=== PATIENT | female | born 2000 | race American Indian/Alaskan Native ===

== ENCOUNTER 2021-04-28 18:34 | Outpatient (CLI) | payer MEDICAID ==
--- NOTE | 2021-04-28 20:27 | Ultrasound Report ---
ULTRASOUND OBSTETRIC LIMITED INDICATION / CLINICAL INFORMATION: wellbeing. Clinical Gestational Age (GA): 36.1 weeks.days COMPARISON: None available. FINDINGS: HEART RATE (beats per minute): 145 AMNIOTIC FLUID INDEX (cm) = 17.6 (normal = 7-24 cm) PRESENTATION: Cephalic. ADDITIONAL FINDINGS: None. IMPRESSION: 1. No significant abnormality. Signer Name: River Oakes MD Signed: 04/28/2021 8:23 PM Workstation Name: [email or web address]
--- NOTE | 2021-04-29 07:33 | Ultrasound Report ---
US OB BPP wo non-stress INDICATION / CLINICAL INFORMATION: wellbeing. TECHNIQUE: Transabdominal. COMPARISON: None available. FINDINGS: Biophysical Profile: breathing movements: 2 movements:2 posture and tone:2 Qualitative amniotic fluid volume: 2 Amniotic fluid index: 17.6 cm. Positioning: Cephalic. heart rate: 138 bpm. IMPRESSION: 1. Biophysical profile 8 of 8 Signer Name: Dayne Poon MD Signed: 04/29/2021 7:29 AM Workstation Name: [id number]
== END 2021-04-28 20:39 | disposition home or self-care (01) ==
LOC: TRG 18:34 → APU 19:29 → TRG 20:39
PROVIDERS: ATTEND Obstetrics & Gynecology
DX: Z34.93 Encounter for supervision of normal pregnancy, unspecified, third trimester (principal); Z3A.36 36 weeks gestation of pregnancy
CPT/HCPCS: 59025; 76815; 76819

== ENCOUNTER 2021-05-04 20:32 | Inpatient (IN) | payer MEDICAID ==
[2021-05-04] MEDS ORDERED: miSOPROStol 200 MCG TAB PR PRN (22:05)
[2021-05-04] MEDS ORDERED: DINOPROSTONE 10 MG VAG SUPP VG ONE ×2 (22:05→23:15)
[2021-05-04] MEDS ORDERED: LIDOCAINE (2%) 20 MG/1 ML VIAL 20 ML MDV INFILTRATI ONE (22:05)
[2021-05-04] MEDS ORDERED: ePHEDrine SULFATE 50 MG/1 ML INJ IV PRN (22:05)
[2021-05-04] MEDS ORDERED: ACETAMINOPHEN 325 MG TAB PO PRN (22:05)
[2021-05-04] MEDS ORDERED: MINERAL OIL 30 ML ORAL LIQD PO PRN (22:05)
[2021-05-04] MEDS ORDERED: TERBUTALINE 1 MG/1 ML INJ SUB-Q PRN (22:05)
[2021-05-04] MEDS ORDERED: OXYTOCIN 10 UNIT/1 ML INJ IM PRN (22:05)
[2021-05-04] MEDS ORDERED: LOPERAMIDE 2 MG CAP PO PRN (22:05)
[2021-05-04] MEDS ORDERED: CARBOPROST TROMETHAMINE 250 MCG/1 ML INJ IM PRN (22:05)
[2021-05-04] MEDS ORDERED: METHYLERGONOVINE MALEATE 0.2 MG/ML VIAL IM PRN (22:05)
--- NOTE | 2021-05-04 22:14 | History and Physical Report ---
History of Present Illness Date of examination: 05/04/21 Date of admission: 05/04/21 20:32 Chief complaint: Pt admitted for IOL d/t IUGR as recommended by [facility] History of present illness: EDC Calculations LMP: 05/25/2021 Past History : 2 Term Births: 0 Premature Births: 0 Living Children: 0 Para: 0 Mult. Births: 0 Prev : 0 Aborta: 1 Elect. Ab: 0 Spont. Ab: 1 Ectopics: 0 # 1 Delivery date: 04/2020 Comments: SAB Past Medical History: Reviewed history and no changes required: Negative Past Medical History Past Surgical History: Reviewed history and no changes required: Fractured pelvis in April with plates and screws placed on right side. 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 Abnormal PAP: negative GIUSEPPE Exposure: negative Infertility: negative Uterine Anomaly: negative Uterine Surgery (not C/S): negative Other Gynecologic Problems: negative Family Hx: Mother: DM Infection History Hx of STD: none HIV Risk Eval: low risk Hepatitis B Risk Eval: low risk Personal hx. of genital herpes: no Partner hx. of genital herpes: no Rash, Viral, or Febrile illness since last LMP? no Varicella/Chicken Pox Status: Previous Disease TB Risk: no Genetic History Congenital Heart Defect: Mom: no Dad: no Orly Disease: Mom: no Dad: no Thalassemia Mom: no Dad: no Neural Tube Defect Mom: no Dad: no Down's Syndrome Mom: no Dad: no Bertrand-Sachs Mom: no Dad: no Sickle Cell Disease/Trait Mom: no Dad: no Hemophilia Mom: no Dad: no Muscular Dystrophy Mom: no Dad: no Cystic Fibrosis Mom: no Dad: no [place] Chorea Mom: no Dad: no Mental Retardation Mom: no Dad: no Fragile X Mom: no Dad: no Other Genetic/Chromosomal Disorder Mom: no Dad: no Child w/other defect Mom: no Dad: no Enviromental Exposures Enviromental Exposures Reviewed Xray Exposure: no Medication, drug, or alcohol use since LMP: no Chemical/Other Exposure: no Exposure to Cat Liter: no Hx of Parvovirus (Fifth Disease): no Occupational Exposure to Children: none Active Medications: None Current Allergies: No known allergies Past History Past Medical History: other (see HPI) Past Surgical History: other (see HPI) [employer]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) Family/Genetic History: other (see HPI) Social history: no significant social history - Obstetrical History Expected Date of Delivery: 05/25/21 Actual Gestation: 37 Week(s) 0 Day(s) : 2 Para: 0 Hx # Term Pregnancies: 0 Number of Pregnancies: 0 Spontaneous Abortions: 1 Induced : 0 Number of Living Children: 0 Medications and Allergies Allergies Allergy/AdvReac Type Severity Reaction Status Date / Time No Known Allergies Allergy Verified 04/28/21 18:53 Home Medications Medication Instructions Recorded Confirmed Last Taken Type No Known Home Medications [No 05/04/21 05/04/21 Unknown History Reported Home Medications] Active Meds: Active Medications Acetaminophen (Acetaminophen 325 Mg Tab) 650 mg PO Q4H PRN PRN Reason: Pain, Mild (1-3) Carboprost Tromethamine (Carboprost Tromethamine 250 Mcg/1 Ml Inj) 250 mcg IM ONCE PRN PRN Reason: Uterine Bleeding Dinoprostone (Dinoprostone 10 Mg Vag Supp) 10 mg VG ONCE ONE Stop: 05/04/21 22:06 Ephedrine Sulfate (Ephedrine Sulfate 50 Mg/1 Ml Inj) 10 mg IV Q2M PRN PRN Reason: Hypotension Lactated Ringer's (Lactated Ringers) 1,000 mls @ 125 mls/hr IV DIRECT TARAN Oxytocin/Sodium Chloride (Pitocin/Ns 30 Unit/500ml) 30 units in 500 mls @ 40 mls/hr IV TITR TARAN; Protocol Lidocaine (Lidocaine (2%) 20 Mg/1 Ml Vial 20 Ml Mdv) 20 ml INFILTRATI ONCE ONE Stop: 05/04/21 22:06 Loperamide HCl (Loperamide 2 Mg Cap) 2 mg PO ONCE PRN PRN Reason: give with Hemabate Methylergonovine Maleate (Methylergonovine Maleate 0.2 Mg/Ml Vial) 0.2 mg IM ONCE PRN PRN Reason: Uterine Bleeding Mineral Oil (Mineral Oil 30 Ml Oral Liqd) 30 ml PO QHS PRN PRN Reason: Constipation Misoprostol (Misoprostol 200 Mcg Tab) 800 mcg [place] ONCE PRN PRN Reason: Uterine Bleeding Nalbuphine HCl (Nalbuphine 10 Mg/1 Ml Inj) 10 mg IV Q2H PRN PRN Reason: Pain, Moderate (4-6) Oxytocin (Oxytocin 10 Unit/1 Ml Inj) 10 unit IM ONCE PRN PRN Reason: Uterine Bleeding Terbutaline Sulfate (Terbutaline 1 Mg/1 Ml Inj) 0.25 mg SUB-Q ONCE PRN PRN Reason: Hyperstimulation/Hypertonicity Review of Systems All systems: negative - Vital Signs Vital signs: Vital Signs Pulse BP 113 H 108/68 05/04/21 21:04 05/04/21 21:04 Temp Pulse Resp BP Pulse Ox 98.5 F 113 H 12 108/68 05/04/21 21:06 05/04/21 21:06 05/04/21 21:06 05/04/21 21:06 - Physical Exam Breasts: Positive: normal Lungs: Positive: Normal air movement Abdomen: Positive: normal appearance Genitourinary (Female): Positive: normal external genitalia - Obstetrical FHR: category 1 Uterine Contraction Monitor Mode: External Cervical Dilatation: 0 Uterine Contraction Pattern: Irregular Uterine Tone Measurement Phase: Resting Results Result Diagrams: 05/04/21 21:48 All other labs normal. Assessment and Plan 21y/o @ 37+0 weeks admitted for IOL d/t IUGR 4th %. GBS Negative. pt had regular care since 10wks gestation. Admission orders in EMR, plan for cervical ripening. - Patient Problems (1) 37 weeks gestation of Current Visit: Yes Status: Acute (2) IUGR (intrauterine growth restriction) Current Visit: Yes Status: Acute Plan to address problem: efw 4th% at AMFM 04/12 IOL recommended at 37 weeks cont efm/toco cervical ripening tonight
[2021-05-04 22:22] LABS: Hematocrit 34.4 % (30.3-42.9); Hemoglobin 11.5 gm/dl (10.1-14.3); Mean Corpuscular HGB Conc 33 % (30-34); Mean Corpuscular Volume 87 fl (79-97); Platelet Count 195 K/mm3 (140-440); Red Blood Count 3.96 M/mm3 (3.65-5.03); Red Cell Distribution Width 14.3 % (13.2-15.2)
[2021-05-04] MEDS ORDERED: OXYTOCIN DRIP 30 UNITS/500 ML BAG IV SCH (23:00)
[2021-05-05] MEDS: LACTATED RINGERS 1,000 ML IV SCH (01:00)
[2021-05-05] MEDS: NalbUPHINE 10 MG/1 ML INJ IV PRN (03:31)
[2021-05-05] MEDS ORDERED: OXYTOCIN DRIP 30 UNITS/500 ML BAG IV SCH (07:00)
--- NOTE | 2021-05-05 10:04 | Event Note ---
Date: 05/05/21 Report for RNs patient stable. Patient had her Cervidil removed during the night due to hyperstimulation. Patient is without change in her cervix. Patient desires eat this morning. Will allow regular breakfast and then start Pitocin induction afterwards.
--- NOTE | 2021-05-05 15:53 | Event Note ---
Date: 05/05/21 CRIS gomez RN reports pitocin @ 6mu Patient's contractions q 2-4 minutes and she is starting to feel the contractions Will continue
--- NOTE | 2021-05-05 16:59 | Progress Note ---
Assessment and Plan - Patient Problems (1) IUGR (intrauterine growth restriction) Current Visit: Yes Status: Acute Plan to address problem: Discussed with the patient the nature of serial induction. Questions answered. Discussed the risks of and. indications for operative intervention. Will continue induction until this evening. At that time reassess if labor has not started we'll stop induction. We'll allow to eat and possibly low-dose Pitocin this evening. If labor is progressing or other indications to continue induction we'll do so at that time. Subjective - Subjective Date of service: 05/05/21 Patient reports: movement normal, contractions (Patient says has been feeling contractions for the last hour or 2) Objective - Vital Signs Vital Signs: Vital Signs - 12hr 05/05/21 05/05/21 05/05/21 05:02 05:07 05:12 Temperature Pulse Rate 115 H 116 H 113 H Respiratory Rate Blood Pressure O2 Sat by Pulse 97 96 95 Oximetry 05/05/21 05/05/21 05/05/21 05:16 05:17 05:22 Temperature Pulse Rate 114 H 109 H 118 H Respiratory Rate Blood Pressure O2 Sat by Pulse 94 94 96 Oximetry 05/05/21 05/05/21 05/05/21 05:27 05:32 05:37 Temperature Pulse Rate 106 H 101 H 108 H Respiratory Rate Blood Pressure O2 Sat by Pulse 97 97 98 Oximetry 05/05/21 05/05/21 05/05/21 05:42 05:47 05:52 Temperature Pulse Rate 107 H 107 H 109 H Respiratory Rate Blood Pressure O2 Sat by Pulse 96 97 97 Oximetry 05/05/21 05/05/21 05/05/21 05:57 06:02 06:07 Temperature Pulse Rate 105 H 113 H 111 H Respiratory Rate Blood Pressure O2 Sat by Pulse 98 97 97 Oximetry 05/05/21 05/05/21 05/05/21 06:23 06:28 06:30 Temperature Pulse Rate 108 H 107 H 108 H Respiratory Rate Blood Pressure O2 Sat by Pulse 96 96 94 Oximetry 05/05/21 05/05/21 05/05/21 06:33 06:38 06:43 Temperature Pulse Rate 110 H 106 H 103 H Respiratory Rate Blood Pressure O2 Sat by Pulse 95 94 94 Oximetry 05/05/21 05/05/21 05/05/21 06:48 06:53 06:58 Temperature Pulse Rate 105 H 105 H 103 H Respiratory Rate Blood Pressure O2 Sat by Pulse 96 96 95 Oximetry 05/05/21 05/05/21 05/05/21 06:59 07:03 07:08 Temperature Pulse Rate 105 H 105 H 103 H Respiratory Rate Blood Pressure O2 Sat by Pulse 94 97 97 Oximetry 05/05/21 05/05/21 05/05/21 07:13 07:18 07:23 Temperature Pulse Rate 104 H 113 H 104 H Respiratory Rate Blood Pressure O2 Sat by Pulse 97 96 96 Oximetry 05/05/21 05/05/21 05/05/21 07:26 07:28 07:33 Temperature Pulse Rate 104 H 102 H 107 H Respiratory Rate Blood Pressure O2 Sat by Pulse 94 97 98 Oximetry 05/05/21 05/05/21 05/05/21 07:38 07:43 07:48 Temperature Pulse Rate 109 H 110 H 107 H Respiratory Rate Blood Pressure O2 Sat by Pulse 98 98 98 Oximetry 05/05/21 05/05/21 05/05/21 07:53 07:58 08:00 Temperature 97.6 F Pulse Rate 111 H 113 H Respiratory 18 Rate Blood Pressure O2 Sat by Pulse 98 98 Oximetry 05/05/21 05/05/21 05/05/21 08:03 08:45 08:48 Temperature Pulse Rate 111 H 99 H 100 H Respiratory Rate Blood Pressure 114/72 O2 Sat by Pulse 96 98 Oximetry 05/05/21 05/05/21 05/05/21 08:50 08:55 09:00 Temperature Pulse Rate 103 H 97 H 101 H Respiratory Rate Blood Pressure O2 Sat by Pulse 97 97 98 Oximetry 05/05/21 05/05/21 05/05/21 09:05 09:10 09:15 Temperature Pulse Rate 103 H 104 H 106 H Respiratory Rate Blood Pressure O2 Sat by Pulse 97 97 99 Oximetry 05/05/21 05/05/21 05/05/21 09:20 09:25 09:30 Temperature Pulse Rate 94 H 96 H 97 H Respiratory Rate Blood Pressure O2 Sat by Pulse 97 97 97 Oximetry 05/05/21 05/05/21 05/05/21 09:35 09:40 09:45 Temperature Pulse Rate 97 H 99 H 98 H Respiratory Rate Blood Pressure O2 Sat by Pulse 97 98 98 Oximetry 05/05/21 05/05/21 05/05/21 09:50 10:10 10:15 Temperature Pulse Rate 101 H 102 H 96 H Respiratory Rate Blood Pressure O2 Sat by Pulse 97 99 99 Oximetry 05/05/21 05/05/21 05/05/21 10:20 10:25 10:30 Temperature Pulse Rate 91 H 93 H 97 H Respiratory Rate Blood Pressure O2 Sat by Pulse 99 98 97 Oximetry 05/05/21 05/05/21 05/05/21 10:35 10:40 10:45 Temperature Pulse Rate 100 H 98 H 98 H Respiratory Rate Blood Pressure O2 Sat by Pulse 97 97 97 Oximetry 05/05/21 05/05/21 05/05/21 10:50 10:55 11:00 Temperature Pulse Rate 95 H 97 H 96 H Respiratory Rate Blood Pressure O2 Sat by Pulse 97 97 97 Oximetry 05/05/21 05/05/21 05/05/21 11:05 11:10 11:15 Temperature Pulse Rate 95 H 103 H 98 H Respiratory Rate Blood Pressure O2 Sat by Pulse 98 99 97 Oximetry 05/05/21 05/05/21 05/05/21 11:20 11:25 11:30 Temperature Pulse Rate 94 H 96 H 97 H Respiratory Rate Blood Pressure O2 Sat by Pulse 97 98 98 Oximetry 05/05/21 05/05/21 05/05/21 11:35 11:40 11:45 Temperature Pulse Rate 109 H 84 85 Respiratory Rate Blood Pressure O2 Sat by Pulse 98 98 97 Oximetry 05/05/21 05/05/21 05/05/21 11:50 11:55 12:00 Temperature Pulse Rate 87 102 H 87 Respiratory Rate Blood Pressure O2 Sat by Pulse 98 100 97 Oximetry 05/05/21 05/05/21 05/05/21 12:05 12:10 12:15 Temperature Pulse Rate 87 83 91 H Respiratory Rate Blood Pressure O2 Sat by Pulse 99 97 98 Oximetry 05/05/21 05/05/21 05/05/21 12:20 12:25 12:28 Temperature Pulse Rate 88 89 Respiratory Rate Blood Pressure O2 Sat by Pulse 100 98 94 Oximetry 05/05/21 05/05/21 05/05/21 12:30 12:35 12:40 Temperature Pulse Rate 92 H 93 H 89 Respiratory Rate Blood Pressure O2 Sat by Pulse 100 100 99 Oximetry 05/05/21 05/05/21 05/05/21 12:45 12:50 12:55 Temperature Pulse Rate 86 90 82 Respiratory Rate Blood Pressure O2 Sat by Pulse 100 100 98 Oximetry 05/05/21 05/05/21 05/05/21 13:00 13:05 13:10 Temperature Pulse Rate 83 80 83 Respiratory Rate Blood Pressure O2 Sat by Pulse 98 98 97 Oximetry 05/05/21 05/05/21 05/05/21 13:15 13:20 13:25 Temperature Pulse Rate 87 92 H 93 H Respiratory Rate Blood Pressure O2 Sat by Pulse 98 97 96 Oximetry 05/05/21 05/05/21 05/05/21 13:30 13:35 13:40 Temperature Pulse Rate 89 91 H 90 Respiratory Rate Blood Pressure O2 Sat by Pulse 97 98 94 Oximetry 05/05/21 05/05/21 05/05/21 13:45 13:50 13:55 Temperature Pulse Rate 92 H 90 88 Respiratory Rate Blood Pressure O2 Sat by Pulse 94 95 99 Oximetry 05/05/21 05/05/21 05/05/21 14:00 14:05 14:10 Temperature Pulse Rate 85 85 76 Respiratory Rate Blood Pressure O2 Sat by Pulse 99 98 98 Oximetry 05/05/21 05/05/21 05/05/21 14:15 14:20 14:25 Temperature Pulse Rate 78 77 81 Respiratory Rate Blood Pressure O2 Sat by Pulse 98 98 97 Oximetry 05/05/21 05/05/21 05/05/21 14:30 14:35 14:40 Temperature Pulse Rate 79 83 83 Respiratory Rate Blood Pressure O2 Sat by Pulse 97 97 97 Oximetry 05/05/21 05/05/21 05/05/21 14:45 14:50 14:55 Temperature Pulse Rate 90 98 H 85 Respiratory Rate Blood Pressure O2 Sat by Pulse 100 97 96 Oximetry 05/05/21 05/05/21 05/05/21 15:00 15:05 15:10 Temperature Pulse Rate 89 95 H 94 H Respiratory Rate Blood Pressure O2 Sat by Pulse 96 96 99 Oximetry 05/05/21 05/05/21 05/05/21 15:15 15:20 15:25 Temperature Pulse Rate 93 H 91 H 93 H Respiratory Rate Blood Pressure O2 Sat by Pulse 98 98 99 Oximetry 05/05/21 05/05/21 05/05/21 15:30 15:35 15:40 Temperature Pulse Rate 90 89 88 Respiratory Rate Blood Pressure O2 Sat by Pulse 99 99 99 Oximetry 05/05/21 05/05/21 05/05/21 15:45 15:50 15:53 Temperature Pulse Rate 84 82 82 Respiratory Rate Blood Pressure O2 Sat by Pulse 100 100 94 Oximetry 05/05/21 05/05/21 05/05/21 15:55 16:00 16:05 Temperature Pulse Rate 89 77 83 Respiratory Rate Blood Pressure O2 Sat by Pulse 96 99 99 Oximetry 05/05/21 05/05/21 05/05/21 16:10 16:15 16:20 Temperature Pulse Rate 87 93 H 88 Respiratory Rate Blood Pressure O2 Sat by Pulse 99 99 98 Oximetry 05/05/21 05/05/21 05/05/21 16:25 16:30 16:35 Temperature Pulse Rate 78 84 86 Respiratory Rate Blood Pressure O2 Sat by Pulse 92 100 99 Oximetry 05/05/21 05/05/21 05/05/21 16:40 16:45 16:46 Temperature Pulse Rate 89 95 H 71 Respiratory Rate Blood Pressure O2 Sat by Pulse 99 99 88 Oximetry 05/05/21 05/05/21 05/05/21 16:50 16:52 16:55 Temperature Pulse Rate 92 H 92 H 93 H Respiratory Rate Blood Pressure O2 Sat by Pulse 98 93 99 Oximetry - Exam Breasts: deferred Cardiovascular: Regular rate Abdomen: Present: normal appearance, soft FHR: auscultation normal, category 1 Uterine Contraction Monitor Mode: Palpation - Labs Labs: Laboratory Results - last 24 hr 05/04/21 05/04/21 05/04/21 21:48 21:48 21:48 WBC 9.6 RBC 3.96 Hgb 11.5 Hct 34.4 MCV 87 MCH 29 MCHC 33 RDW 14.3 Plt Count 195 Syphilis IgG Antibody Nonreactive Coronavirus (PCR) Blood Type B POSITIVE Antibody Screen Negative 05/05/21 09:11 WBC RBC Hgb Hct MCV MCH MCHC RDW Plt Count Syphilis IgG Antibody Coronavirus (PCR) Negative Blood Type Antibody Screen
--- NOTE | 2021-05-05 17:44 | Event Note ---
Date: 05/05/21 Patient cervix check now after 1 cm 80% effaced -3 station. Will turn off Pitocin a lot of patient need and will most likely do low-dose Pitocin tonight
--- NOTE | 2021-05-05 19:51 | Event Note ---
Date: 05/05/21 Pt sitting without complaints in room, preparing for shower, SO and RN @BS. POC reviewed with pt and options for IOL discussed. Pt declines mitchell bulb and states desires for low dose pitocin overnight. Pt requests deferred SVE. Orders given to RN @BS. All questions addressed.
[2021-05-06] MEDS: NalbUPHINE 10 MG/1 ML INJ IV PRN ×3 (01:55→10:03)
[2021-05-06] MEDS: LACTATED RINGERS 1,000 ML IV SCH ×4 (02:02→10:31)
--- NOTE | 2021-05-06 07:42 | Progress Note ---
Assessment and Plan patient's cervix is more favorable than on admission. Discussed options for continuing IOL today. Pt desires Epidural for pain management. stop pit for now, Will allow light breakfast, then restart pitocin 4x, place epidural and AROM. Spoke to patient and her mother via phone. both agree with plan. all questions addressed. - Patient Problems (1) 37 weeks gestation of Current Visit: Yes Status: Acute (2) IUGR (intrauterine growth restriction) Current Visit: Yes Status: Acute Subjective - Subjective Date of service: 05/06/21 Principal diagnosis: IUP @ 37+2, second full day of IOL for IUGR Interval history: EDC Calculations LMP: 05/25/2021 Past History : 2 Term Births: 0 Premature Births: 0 Living Children: 0 Para: 0 Mult. Births: 0 Prev : 0 Aborta: 1 Elect. Ab: 0 Spont. Ab: 1 Ectopics: 0 # 1 Delivery date: 04/2020 Comments: SAB Past Medical History: Reviewed history and no changes required: Negative Past Medical History Past Surgical History: Reviewed history and no changes required: Fractured pelvis in April with plates and screws placed on right side. Past Medical History Anesthesia Complications: negative Anemia: negative Autoimmune Disorder: negative Bleeding Disorder: negative Blood Transfusions: negative Breast Disease: negative Diabetes: negative Heart Disease: negative Hypertension: negative Hepatitis/Liver Disease: negative Kidney Disease/UTI: negative Neurologic/Epilepsy/Migraines: negative Phlebitis/Varicosities: negative Psychiatric: negative Pulmonary Disease/Asthma: negative Thyroid Disease: negative Hospitalizations: negative Surgery (Non-slitter processed film): Fractured pelvis in April with plates and screws placed on right side. Abnormal PAP: negative GIUSEPPE Exposure: negative Infertility: negative Uterine Anomaly: negative Uterine Surgery (not C/S): negative Other Gynecologic Problems: negative Family Hx: Mother: DM Infection History Hx of STD: none HIV Risk Eval: low risk Hepatitis B Risk Eval: low risk Personal hx. of genital herpes: no Partner hx. of genital herpes: no Rash, Viral, or Febrile illness since last LMP? no Varicella/Chicken Pox Status: Previous Disease TB Risk: no Genetic History Congenital Heart Defect: Mom: no Dad: no Orly Disease: Mom: no Dad: no Thalassemia Mom: no Dad: no Neural Tube Defect Mom: no Dad: no Down's Syndrome Mom: no Dad: no Bertrand-Sachs Mom: no Dad: no Sickle Cell Disease/Trait Mom: no Dad: no Hemophilia Mom: no Dad: no Muscular Dystrophy Mom: no Dad: no Cystic Fibrosis Mom: no Dad: no [place] Chorea Mom: no Dad: no Mental Retardation Mom: no Dad: no Fragile X Mom: no Dad: no Other Genetic/Chromosomal Disorder Mom: no Dad: no Child w/other defect Mom: no Dad: no Enviromental Exposures Enviromental Exposures Reviewed Xray Exposure: no Medication, drug, or alcohol use since LMP: no Chemical/Other Exposure: no Exposure to Cat Liter: no Hx of Parvovirus (Fifth Disease): no Occupational Exposure to Children: none Active Medications: None Current Allergies: No known allergies Patient reports: movement normal, contractions, no loss of fluid, no vaginal bleeding Objective - Vital Signs Vital Signs: Vital Signs - 12hr 05/05/21 05/05/21 05/05/21 20:23 20:25 23:32 Temperature 98 F Pulse Rate 97 H 87 Respiratory 20 Rate Blood Pressure 118/66 111/67 Blood Pressure [Left] O2 Sat by Pulse Oximetry 05/05/21 05/05/21 05/05/21 23:33 23:38 23:43 Temperature Pulse Rate 93 H 85 92 H Respiratory Rate Blood Pressure Blood Pressure [Left] O2 Sat by Pulse 98 98 97 Oximetry 05/05/21 05/05/21 05/05/21 23:48 23:53 23:58 Temperature Pulse Rate 104 H 90 85 Respiratory Rate Blood Pressure Blood Pressure [Left] O2 Sat by Pulse 98 98 99 Oximetry 05/06/21 05/06/21 05/06/21 00:03 00:08 00:13 Temperature Pulse Rate 90 91 H 88 Respiratory Rate Blood Pressure Blood Pressure [Left] O2 Sat by Pulse 98 98 98 Oximetry 05/06/21 05/06/21 05/06/21 00:18 00:23 00:28 Temperature Pulse Rate 88 87 81 Respiratory Rate Blood Pressure Blood Pressure [Left] O2 Sat by Pulse 98 99 99 Oximetry 05/06/21 05/06/21 05/06/21 00:32 00:33 00:38 Temperature 98.1 F Pulse Rate 89 94 H Respiratory 20 Rate Blood Pressure Blood Pressure [Left] O2 Sat by Pulse 98 98 Oximetry 07/16/21 07/16/21 07/16/21 00:43 00:48 00:53 Temperature Pulse Rate 84 83 85 Respiratory Rate Blood Pressure Blood Pressure [Left] O2 Sat by Pulse 98 99 99 Oximetry 05/06/21 05/06/21 05/06/21 00:58 01:03 01:08 Temperature Pulse Rate 84 85 87 Respiratory Rate Blood Pressure Blood Pressure [Left] O2 Sat by Pulse 99 98 98 Oximetry 05/06/21 05/06/21 05/06/21 01:13 01:18 01:23 Temperature Pulse Rate 83 86 86 Respiratory Rate Blood Pressure Blood Pressure [Left] O2 Sat by Pulse 99 99 98 Oximetry 05/06/21 05/06/21 05/06/21 01:28 01:40 01:45 Temperature Pulse Rate 88 87 87 Respiratory Rate Blood Pressure Blood Pressure [Left] O2 Sat by Pulse 98 98 99 Oximetry 05/06/21 05/06/21 05/06/21 01:50 01:55 02:00 Temperature Pulse Rate 80 79 79 Respiratory 18 Rate Blood Pressure Blood Pressure [Left] O2 Sat by Pulse 98 99 99 Oximetry 05/06/21 05/06/21 05/06/21 02:05 02:10 02:15 Temperature Pulse Rate 88 82 77 Respiratory Rate Blood Pressure Blood Pressure [Left] O2 Sat by Pulse 98 99 98 Oximetry 05/06/21 05/06/21 05/06/21 02:20 02:25 02:30 Temperature Pulse Rate 78 74 80 Respiratory Rate Blood Pressure Blood Pressure [Left] O2 Sat by Pulse 98 98 98 Oximetry 05/06/21 05/06/21 05/06/21 02:35 02:40 02:45 Temperature Pulse Rate 86 70 68 Respiratory Rate Blood Pressure Blood Pressure [Left] O2 Sat by Pulse 99 99 99 Oximetry 05/06/21 05/06/21 05/06/21 02:50 02:55 03:00 Temperature Pulse Rate 74 84 71 Respiratory Rate Blood Pressure Blood Pressure [Left] O2 Sat by Pulse 99 100 98 Oximetry 05/06/21 05/06/21 05/06/21 03:05 03:10 03:15 Temperature Pulse Rate 72 83 78 Respiratory Rate Blood Pressure Blood Pressure [Left] O2 Sat by Pulse 98 98 99 Oximetry 05/06/21 05/06/21 05/06/21 03:20 03:25 03:30 Temperature Pulse Rate 75 75 69 Respiratory Rate Blood Pressure Blood Pressure [Left] O2 Sat by Pulse 98 97 98 Oximetry 05/06/21 05/06/21 05/06/21 03:35 03:40 03:45 Temperature Pulse Rate 75 66 75 Respiratory Rate Blood Pressure Blood Pressure [Left] O2 Sat by Pulse 98 98 98 Oximetry 05/06/21 05/06/21 05/06/21 03:50 03:55 03:56 Temperature Pulse Rate 75 76 103 H Respiratory Rate Blood Pressure Blood Pressure [Left] O2 Sat by Pulse 99 99 91 Oximetry 05/06/21 05/06/21 05/06/21 04:00 04:04 04:05 Temperature 98.2 F Pulse Rate 73 71 Respiratory 18 Rate Blood Pressure Blood Pressure [Left] O2 Sat by Pulse 100 99 Oximetry 05/06/21 05/06/21 05/06/21 04:10 04:15 04:20 Temperature Pulse Rate 73 83 76 Respiratory Rate Blood Pressure Blood Pressure [Left] O2 Sat by Pulse 98 98 98 Oximetry 05/06/21 05/06/21 05/06/21 04:25 04:30 04:35 Temperature Pulse Rate 76 87 79 Respiratory Rate Blood Pressure Blood Pressure [Left] O2 Sat by Pulse 98 98 98 Oximetry 05/06/21 05/06/21 05/06/21 04:40 04:45 04:50 Temperature Pulse Rate 76 75 80 Respiratory Rate Blood Pressure Blood Pressure [Left] O2 Sat by Pulse 98 98 98 Oximetry 05/06/21 05/06/21 05/06/21 04:55 05:00 05:05 Temperature Pulse Rate 71 79 78 Respiratory Rate Blood Pressure Blood Pressure [Left] O2 Sat by Pulse 99 98 99 Oximetry 05/06/21 05/06/21 05/06/21 05:07 05:15 05:20 Temperature Pulse Rate 80 65 77 Respiratory Rate Blood Pressure 104/59 Blood Pressure [Left] O2 Sat by Pulse 80 L 100 Oximetry 05/06/21 05/06/21 05/06/21 05:25 05:30 05:35 Temperature Pulse Rate 82 83 81 Respiratory Rate Blood Pressure Blood Pressure [Left] O2 Sat by Pulse 99 98 99 Oximetry 05/06/21 05/06/21 05/06/21 05:40 05:45 05:50 Temperature Pulse Rate 80 71 84 Respiratory Rate Blood Pressure Blood Pressure [Left] O2 Sat by Pulse 98 98 98 Oximetry 05/06/21 05/06/21 05/06/21 05:55 06:00 06:05 Temperature Pulse Rate 82 81 81 Respiratory Rate Blood Pressure Blood Pressure [Left] O2 Sat by Pulse 99 99 98 Oximetry 05/06/21 05/06/21 05/06/21 06:10 06:15 06:20 Temperature Pulse Rate 73 82 86 Respiratory Rate Blood Pressure Blood Pressure [Left] O2 Sat by Pulse 98 99 98 Oximetry 05/06/21 05/06/21 05/06/21 06:25 06:30 06:35 Temperature Pulse Rate 75 81 95 H Respiratory Rate Blood Pressure Blood Pressure [Left] O2 Sat by Pulse 99 100 81 L Oximetry 05/06/21 05/06/21 05/06/21 06:36 06:41 06:46 Temperature Pulse Rate 93 H 74 82 Respiratory Rate Blood Pressure Blood Pressure [Left] O2 Sat by Pulse 100 100 98 Oximetry 05/06/21 05/06/21 05/06/21 06:51 06:56 07:01 Temperature Pulse Rate 81 81 89 Respiratory Rate Blood Pressure Blood Pressure [Left] O2 Sat by Pulse 99 99 98 Oximetry 05/06/21 05/06/21 05/06/21 07:06 07:09 07:10 Temperature 97.7 F Pulse Rate 81 78 84 Respiratory 22 Rate Blood Pressure 112/63 Blood Pressure 112/84 [Left] O2 Sat by Pulse 98 99 Oximetry 05/06/21 05/06/21 05/06/21 07:11 07:16 07:17 Temperature Pulse Rate 85 83 Respiratory 22 Rate Blood Pressure Blood Pressure [Left] O2 Sat by Pulse 100 98 Oximetry 05/06/21 05/06/21 05/06/21 07:21 07:30 07:31 Temperature Pulse Rate 81 85 78 Respiratory Rate Blood Pressure Blood Pressure [Left] O2 Sat by Pulse 98 0 L 100 Oximetry 05/06/21 07:36 Temperature Pulse Rate 87 Respiratory Rate Blood Pressure Blood Pressure [Left] O2 Sat by Pulse 100 Oximetry - Exam Breasts: normal Cardiovascular: Regular rate Lungs: Normal air movement Abdomen: Present: normal appearance, soft Vulva: both: normal Uterus: Present: normal, fundal height above umbilicus FHR: auscultation normal, category 1 Uterine Contraction Monitor Mode: External Cervical Dilatation: 1.5 Cervical Effacement Percentage: 70 station: -1 Uterine Contraction Pattern: Regular Uterine Tone Measurement Phase: Contraction Uterine Contraction Intensity: Mild Extremities: normal Deep Tendon Reflex Grade: Normal +2 - Labs Labs: Laboratory Results - last 24 hr 05/05/21 09:11 Coronavirus (PCR) Negative
[2021-05-06] MEDS ORDERED: OXYTOCIN DRIP 30 UNITS/500 ML BAG IV SCH (09:00)
--- NOTE | 2021-05-06 11:52 | Anesthesia Consultation ---
Anesthesia Consult and Med Hx Date of service: 05/06/21 - Airway Anesthetic Teeth Evaluation: Good ROM Head & Neck: Adequate Mental/Hyoid Distance: Adequate Mallampati Class: Class II Intubation Access Assessment: Good - Pulmonary Exam CTA: Yes - Cardiac Exam Cardiac Exam: RRR - Pre-Operative Health Status ASA Pre-Surgery Classification: ASA2 Proposed Anesthetic Plan: Epidural, Spinal - Pulmonary Hx Asthma: Yes - Cardiovascular System Hx Hypertension: No - Central Nervous System Hx Seizures: No Hx Psychiatric Problems: No - Endocrine Hx Renal Disease: No Hx Hypothyroidism: No Hx Hyperthyroidism: No - Hematic Hx Anemia: No Hx Sickle Cell Disease: No - Other Systems Hx Alcohol Use: No
--- NOTE | 2021-05-06 11:54 | Progress Note ---
Labor Epidural - Labor Epidural Start Time: 11:35 Stop Time: 11:45 Performed by:: SEAN DAS Procedure: Patient is requesting combined spinal epidural for labor and pain. H&P, labs were reviewed. All questions and concerns were answered. Informed consent was obtained. Timeout performed. Patient in sitting position on side of bed. Sterile prep and drape was performed. 3 mL 1% lidocaine skin wheal at L [3]-L [4]. 18-gauge Tuohy epidural needle advanced to [id number] using air technique, [-]. 27-gauge spinal needle advanced, positive free-flowing CSF. Spinal dose of [Precedex 5mcg]. Epidural catheter advanced to [12] cm. [negative] Aspiration, [negative] test dose. Sterile dressing applied. Patient tolerated procedure well. Last Vital Signs Temp 97.7 F 05/06/21 07:10 Pulse 82 05/06/21 11:52 Resp 26 H 05/06/21 11:02 BP 105/59 05/06/21 11:52 Pulse Ox 100 05/06/21 11:51
[2021-05-06] MEDS ORDERED: fentaNYL-BUPIV 2 MCG/ML-0.125% 200 MCG/100 ML BAG EPIDURAL ONE (12:05)
--- NOTE | 2021-05-06 12:36 | Progress Note ---
Assessment and Plan patient comfortable with epidural, SVE now 6.5/100/-1. fluid clear. anticipate - Patient Problems (1) 37 weeks gestation of Current Visit: Yes Status: Acute (2) IUGR (intrauterine growth restriction) Current Visit: Yes Status: Acute Subjective - Subjective Date of service: 05/06/21 Principal diagnosis: IUP @ 37+2, second full day of IOL for IUGR Interval history: EDC Calculations LMP: 05/25/2021 Past History : 2 Term Births: 0 Premature Births: 0 Living Children: 0 Para: 0 Mult. Births: 0 Prev : 0 Aborta: 1 Elect. Ab: 0 Spont. Ab: 1 Ectopics: 0 # 1 Delivery date: 04/2020 Comments: SAB Past Medical History: Reviewed history and no changes required: Negative Past Medical History Past Surgical History: Reviewed history and no changes required: Fractured pelvis in April with plates and screws placed on right side. Past Medical History Anesthesia Complications: negative Anemia: negative Autoimmune Disorder: negative Bleeding Disorder: negative Blood Transfusions: negative Breast Disease: negative Diabetes: negative Heart Disease: negative Hypertension: negative Hepatitis/Liver Disease: negative Kidney Disease/UTI: negative Neurologic/Epilepsy/Migraines: negative Phlebitis/Varicosities: negative Psychiatric: negative Pulmonary Disease/Asthma: negative Thyroid Disease: negative Hospitalizations: negative Surgery (Non-photolith operator): Fractured pelvis in April with plates and screws placed on right side. Abnormal PAP: negative GIUSEPPE Exposure: negative Infertility: negative Uterine Anomaly: negative Uterine Surgery (not C/S): negative Other Gynecologic Problems: negative Family Hx: Mother: DM Infection History Hx of STD: none HIV Risk Eval: low risk Hepatitis B Risk Eval: low risk Personal hx. of genital herpes: no Partner hx. of genital herpes: no Rash, Viral, or Febrile illness since last LMP? no Varicella/Chicken Pox Status: Previous Disease TB Risk: no Genetic History Congenital Heart Defect: Mom: no Dad: no Orly Disease: Mom: no Dad: no Thalassemia Mom: no Dad: no Neural Tube Defect Mom: no Dad: no Down's Syndrome Mom: no Dad: no Bertrand-Sachs Mom: no Dad: no Sickle Cell Disease/Trait Mom: no Dad: no Hemophilia Mom: no Dad: no Muscular Dystrophy Mom: no Dad: no Cystic Fibrosis Mom: no Dad: no [place] Chorea Mom: no Dad: no Mental Retardation Mom: no Dad: no Fragile X Mom: no Dad: no Other Genetic/Chromosomal Disorder Mom: no Dad: no Child w/other defect Mom: no Dad: no Enviromental Exposures Enviromental Exposures Reviewed Xray Exposure: no Medication, drug, or alcohol use since LMP: no Chemical/Other Exposure: no Exposure to Cat Liter: no Hx of Parvovirus (Fifth Disease): no Occupational Exposure to Children: none Active Medications: None Current Allergies: No known allergies Patient reports: new complaints (comfortable s/p epidural) Objective - Vital Signs Vital Signs: Vital Signs - 12hr 05/06/21 05/06/21 05/06/21 00:38 00:43 00:48 Temperature Pulse Rate 94 H 84 83 Respiratory Rate Blood Pressure Blood Pressure [Left] O2 Sat by Pulse 98 98 99 Oximetry 05/06/21 05/06/21 05/06/21 00:53 00:58 01:03 Temperature Pulse Rate 85 84 85 Respiratory Rate Blood Pressure Blood Pressure [Left] O2 Sat by Pulse 99 99 98 Oximetry 05/06/21 05/06/21 05/06/21 01:08 01:13 01:18 Temperature Pulse Rate 87 83 86 Respiratory Rate Blood Pressure Blood Pressure [Left] O2 Sat by Pulse 98 99 99 Oximetry 05/06/21 05/06/21 05/06/21 01:23 01:28 01:40 Temperature Pulse Rate 86 88 87 Respiratory Rate Blood Pressure Blood Pressure [Left] O2 Sat by Pulse 98 98 98 Oximetry 05/06/21 05/06/21 05/06/21 01:45 01:50 01:55 Temperature Pulse Rate 87 80 79 Respiratory 18 Rate Blood Pressure Blood Pressure [Left] O2 Sat by Pulse 99 98 99 Oximetry 05/06/21 05/06/21 05/06/21 02:00 02:05 02:10 Temperature Pulse Rate 79 88 82 Respiratory Rate Blood Pressure Blood Pressure [Left] O2 Sat by Pulse 99 98 99 Oximetry 05/06/21 05/06/21 05/06/21 02:15 02:20 02:25 Temperature Pulse Rate 77 78 74 Respiratory Rate Blood Pressure Blood Pressure [Left] O2 Sat by Pulse 98 98 98 Oximetry 05/06/21 05/06/21 05/06/21 02:30 02:35 02:40 Temperature Pulse Rate 80 86 70 Respiratory Rate Blood Pressure Blood Pressure [Left] O2 Sat by Pulse 98 99 99 Oximetry 05/06/21 05/06/21 05/06/21 02:45 02:50 02:55 Temperature Pulse Rate 68 74 84 Respiratory Rate Blood Pressure Blood Pressure [Left] O2 Sat by Pulse 99 99 100 Oximetry 05/06/21 05/06/21 05/06/21 03:00 03:05 03:10 Temperature Pulse Rate 71 72 83 Respiratory Rate Blood Pressure Blood Pressure [Left] O2 Sat by Pulse 98 98 98 Oximetry 05/06/21 05/06/21 05/06/21 03:15 03:20 03:25 Temperature Pulse Rate 78 75 75 Respiratory Rate Blood Pressure Blood Pressure [Left] O2 Sat by Pulse 99 98 97 Oximetry 05/06/21 05/06/21 05/06/21 03:30 03:35 03:40 Temperature Pulse Rate 69 75 66 Respiratory Rate Blood Pressure Blood Pressure [Left] O2 Sat by Pulse 98 98 98 Oximetry 05/06/21 05/06/21 05/06/21 03:45 03:50 03:55 Temperature Pulse Rate 75 75 76 Respiratory Rate Blood Pressure Blood Pressure [Left] O2 Sat by Pulse 98 99 99 Oximetry 05/06/21 05/06/21 05/06/21 03:56 04:00 04:04 Temperature 98.2 F Pulse Rate 103 H 73 Respiratory 18 Rate Blood Pressure Blood Pressure [Left] O2 Sat by Pulse 91 100 Oximetry 05/06/21 05/06/21 05/06/21 04:05 04:10 04:15 Temperature Pulse Rate 71 73 83 Respiratory Rate Blood Pressure Blood Pressure [Left] O2 Sat by Pulse 99 98 98 Oximetry 05/06/21 05/06/21 05/06/21 04:20 04:25 04:30 Temperature Pulse Rate 76 76 87 Respiratory Rate Blood Pressure Blood Pressure [Left] O2 Sat by Pulse 98 98 98 Oximetry 05/06/21 05/06/21 05/06/21 04:35 04:40 04:45 Temperature Pulse Rate 79 76 75 Respiratory Rate Blood Pressure Blood Pressure [Left] O2 Sat by Pulse 98 98 98 Oximetry 05/06/21 05/06/21 05/06/21 04:50 04:55 05:00 Temperature Pulse Rate 80 71 79 Respiratory Rate Blood Pressure Blood Pressure [Left] O2 Sat by Pulse 98 99 98 Oximetry 05/06/21 05/06/21 05/06/21 05:05 05:07 05:15 Temperature Pulse Rate 78 80 65 Respiratory Rate Blood Pressure 104/59 Blood Pressure [Left] O2 Sat by Pulse 99 80 L Oximetry 05/06/21 05/06/21 05/06/21 05:20 05:25 05:30 Temperature Pulse Rate 77 82 83 Respiratory Rate Blood Pressure Blood Pressure [Left] O2 Sat by Pulse 100 99 98 Oximetry 05/06/21 05/06/21 05/06/21 05:35 05:40 05:45 Temperature Pulse Rate 81 80 71 Respiratory Rate Blood Pressure Blood Pressure [Left] O2 Sat by Pulse 99 98 98 Oximetry 05/06/21 05/06/21 05/06/21 05:50 05:55 06:00 Temperature Pulse Rate 84 82 81 Respiratory Rate Blood Pressure Blood Pressure [Left] O2 Sat by Pulse 98 99 99 Oximetry 05/06/21 05/06/21 05/06/21 06:05 06:10 06:15 Temperature Pulse Rate 81 73 82 Respiratory Rate Blood Pressure Blood Pressure [Left] O2 Sat by Pulse 98 98 99 Oximetry 05/06/21 05/06/21 05/06/21 06:20 06:25 06:30 Temperature Pulse Rate 86 75 81 Respiratory Rate Blood Pressure Blood Pressure [Left] O2 Sat by Pulse 98 99 100 Oximetry 05/06/21 05/06/21 05/06/21 06:35 06:36 06:41 Temperature Pulse Rate 95 H 93 H 74 Respiratory Rate Blood Pressure Blood Pressure [Left] O2 Sat by Pulse 81 L 100 100 Oximetry 05/06/21 05/06/21 05/06/21 06:46 06:51 06:56 Temperature Pulse Rate 82 81 81 Respiratory Rate Blood Pressure Blood Pressure [Left] O2 Sat by Pulse 98 99 99 Oximetry 05/06/21 05/06/21 05/06/21 07:01 07:06 07:09 Temperature Pulse Rate 89 81 78 Respiratory Rate Blood Pressure 112/63 Blood Pressure [Left] O2 Sat by Pulse 98 98 Oximetry 05/06/21 05/06/21 05/06/21 07:10 07:11 07:16 Temperature 97.7 F Pulse Rate 84 85 83 Respiratory 22 Rate Blood Pressure Blood Pressure 112/84 [Left] O2 Sat by Pulse 99 100 98 Oximetry 05/06/21 05/06/21 05/06/21 07:17 07:21 07:30 Temperature Pulse Rate 81 85 Respiratory 22 Rate Blood Pressure Blood Pressure [Left] O2 Sat by Pulse 98 0 L Oximetry 05/06/21 05/06/21 05/06/21 07:31 07:36 07:41 Temperature Pulse Rate 78 87 73 Respiratory Rate Blood Pressure Blood Pressure [Left] O2 Sat by Pulse 100 100 99 Oximetry 05/06/21 05/06/21 05/06/21 07:46 07:51 07:56 Temperature Pulse Rate 81 83 85 Respiratory Rate Blood Pressure Blood Pressure [Left] O2 Sat by Pulse 99 99 98 Oximetry 05/06/21 05/06/21 05/06/21 08:01 08:06 08:11 Temperature Pulse Rate 81 88 90 Respiratory Rate Blood Pressure Blood Pressure [Left] O2 Sat by Pulse 98 98 98 Oximetry 05/06/21 05/06/21 05/06/21 08:16 08:17 08:21 Temperature Pulse Rate 92 H 89 Respiratory 24 Rate Blood Pressure Blood Pressure [Left] O2 Sat by Pulse 99 99 Oximetry 05/06/21 05/06/21 05/06/21 08:26 08:31 08:35 Temperature Pulse Rate 87 75 82 Respiratory Rate Blood Pressure Blood Pressure [Left] O2 Sat by Pulse 99 99 91 Oximetry 05/06/21 05/06/21 05/06/21 08:36 08:41 08:46 Temperature Pulse Rate 80 76 89 Respiratory Rate Blood Pressure Blood Pressure [Left] O2 Sat by Pulse 100 100 100 Oximetry 05/06/21 05/06/21 05/06/21 08:51 08:56 08:58 Temperature Pulse Rate 94 H 86 92 H Respiratory Rate Blood Pressure Blood Pressure [Left] O2 Sat by Pulse 99 100 94 Oximetry 05/06/21 05/06/21 05/06/21 09:01 09:06 09:11 Temperature Pulse Rate 83 76 88 Respiratory Rate Blood Pressure Blood Pressure [Left] O2 Sat by Pulse 98 100 100 Oximetry 05/06/21 05/06/21 05/06/21 09:16 09:17 09:21 Temperature Pulse Rate 89 88 85 Respiratory Rate Blood Pressure Blood Pressure [Left] O2 Sat by Pulse 100 90 98 Oximetry 05/06/21 05/06/21 05/06/21 09:26 09:31 09:36 Temperature Pulse Rate 101 H 101 H 100 H Respiratory Rate Blood Pressure Blood Pressure [Left] O2 Sat by Pulse 95 87 87 Oximetry 05/06/21 05/06/21 05/06/21 09:41 09:46 09:51 Temperature Pulse Rate 98 H 86 86 Respiratory Rate Blood Pressure Blood Pressure [Left] O2 Sat by Pulse 98 100 98 Oximetry 05/06/21 05/06/21 05/06/21 09:56 10:01 10:03 Temperature Pulse Rate 103 H 102 H Respiratory 20 Rate Blood Pressure Blood Pressure [Left] O2 Sat by Pulse 100 90 Oximetry 05/06/21 05/06/21 05/06/21 10:06 10:08 10:11 Temperature Pulse Rate 91 H 89 93 H Respiratory Rate Blood Pressure Blood Pressure [Left] O2 Sat by Pulse 100 94 97 Oximetry 05/06/21 05/06/21 05/06/21 10:13 10:16 10:21 Temperature Pulse Rate 101 H 89 83 Respiratory Rate Blood Pressure Blood Pressure [Left] O2 Sat by Pulse 92 98 99 Oximetry 05/06/21 05/06/21 05/06/21 10:24 10:26 10:31 Temperature Pulse Rate 81 88 69 Respiratory Rate Blood Pressure Blood Pressure [Left] O2 Sat by Pulse 94 91 96 Oximetry 05/06/21 05/06/21 05/06/21 10:35 10:36 10:41 Temperature Pulse Rate 80 78 98 H Respiratory Rate Blood Pressure Blood Pressure [Left] O2 Sat by Pulse 92 91 100 Oximetry 05/06/21 05/06/21 05/06/21 10:46 10:51 10:52 Temperature Pulse Rate 79 88 105 H Respiratory Rate Blood Pressure Blood Pressure [Left] O2 Sat by Pulse 100 95 93 Oximetry 05/06/21 05/06/21 05/06/21 10:56 11:00 11:01 Temperature Pulse Rate 73 87 79 Respiratory Rate Blood Pressure Blood Pressure [Left] O2 Sat by Pulse 98 91 89 Oximetry 05/06/21 05/06/21 05/06/21 11:02 11:06 11:11 Temperature Pulse Rate 79 96 H Respiratory 26 H Rate Blood Pressure Blood Pressure [Left] O2 Sat by Pulse 93 96 Oximetry 05/06/21 05/06/21 05/06/21 11:13 11:16 11:19 Temperature Pulse Rate 75 94 H 105 H Respiratory Rate Blood Pressure Blood Pressure [Left] O2 Sat by Pulse 94 97 94 Oximetry 05/06/21 05/06/21 05/06/21 11:21 11:26 11:29 Temperature Pulse Rate 78 95 H 72 Respiratory Rate Blood Pressure Blood Pressure [Left] O2 Sat by Pulse 95 100 94 Oximetry 05/06/21 05/06/21 05/06/21 11:31 11:34 11:36 Temperature Pulse Rate 103 H 85 89 Respiratory Rate Blood Pressure 117/69 Blood Pressure [Left] O2 Sat by Pulse 88 100 Oximetry 05/06/21 05/06/21 05/06/21 11:38 11:40 11:41 Temperature Pulse Rate 84 78 82 Respiratory Rate Blood Pressure 121/73 119/77 Blood Pressure [Left] O2 Sat by Pulse 100 Oximetry 05/06/21 05/06/21 05/06/21 11:42 11:44 11:46 Temperature Pulse Rate 79 75 89 Respiratory Rate Blood Pressure 115/70 122/72 Blood Pressure [Left] O2 Sat by Pulse 99 Oximetry 05/06/21 05/06/21 05/06/21 11:49 11:50 11:51 Temperature Pulse Rate 71 71 74 Respiratory Rate Blood Pressure 119/59 106/57 Blood Pressure [Left] O2 Sat by Pulse 100 Oximetry 05/06/21 05/06/21 05/06/21 11:52 11:54 11:56 Temperature Pulse Rate 82 73 73 Respiratory Rate Blood Pressure 105/59 105/56 102/56 Blood Pressure [Left] O2 Sat by Pulse 99 Oximetry 05/06/21 05/06/21 05/06/21 11:58 12:00 12:01 Temperature Pulse Rate 69 73 71 Respiratory Rate Blood Pressure 115/63 106/58 Blood Pressure [Left] O2 Sat by Pulse 99 Oximetry 05/06/21 05/06/21 05/06/21 12:06 12:11 12:16 Temperature Pulse Rate 64 70 70 Respiratory Rate Blood Pressure 98/58 Blood Pressure [Left] O2 Sat by Pulse 99 99 99 Oximetry 05/06/21 05/06/21 05/06/21 12:21 12:26 12:28 Temperature Pulse Rate 65 78 68 Respiratory Rate Blood Pressure 108/62 Blood Pressure [Left] O2 Sat by Pulse 99 99 Oximetry 05/06/21 05/06/21 12:31 12:32 Temperature Pulse Rate 70 70 Respiratory Rate Blood Pressure 102/55 Blood Pressure [Left] O2 Sat by Pulse 99 Oximetry - Exam Breasts: normal Cardiovascular: Regular rate Lungs: Normal air movement Abdomen: Present: normal appearance, soft Vulva: both: normal Uterus: Present: normal FHR: category 1 Uterine Contraction Monitor Mode: Internal Cervical Dilatation: 6.5 Cervical Effacement Percentage: 100 station: -1 Uterine Contraction Pattern: Regular Uterine Tone Measurement Phase: Contraction Uterine Contraction Intensity: Moderate Extremities: normal Deep Tendon Reflex Grade: Normal +2 - Labs Labs: Laboratory Results - last 24 hr 05/05/21 09:11 Coronavirus (PCR) Negative
--- NOTE | 2021-05-06 13:20 | Procedure Note ---
OB Delivery Note - Delivery Date of Delivery: 05/06/21 Garage Door Hanger: YRN ESCUDERO Estimated blood loss: 200cc - Vaginal Delivery presentation: vertex Delivery position: OA Intrapartum events: other(please specify) (IOL fo IUGR) Delivery induction: cervidil Delivery augmentation: rupture of membranes, pitocin Delivery monitor: external FHT, internal uterine Route of delivery: Delivery placenta: spontaneous Delivery cord: 3 umbilical vessels Episiotomy: none Delivery laceration: none Anesthesia: epidural Delivery comments: baby boy born over intact perineum in to his mother's arms, skin to skin. 3 vessel cord clamped and cut after cessation of pulsation. placenta del intact and complete, marginal cord insertion. Placenta sent to pathology d/t IUGR. Pitocin bolus infusing, fundus firm, lochia scant, no lacerations to repair. Apgars 8/9, wt 5#6oz, mother and infant LDR stable. all counts correct. - A at 1 minute: 8 at 5 minutes: 9 Gender: Male (5#6)
[2021-05-06] MEDS ORDERED: PHYTONADIONE 1 MG/0.5 ML *NICU*INJ IM ONE (13:58)
[2021-05-06] MEDS ORDERED: ERYTHROMYCIN 5 MG/1 GM OPHTH OINT OU ONE (13:58)
[2021-05-06] MEDS ORDERED: NALOXONE 2 MG/2 ML INJ IV PRN (14:30)
[2021-05-06] MEDS ORDERED: fentaNYL-BUPIV 2 MCG/ML-0.125% 200 MCG/100 ML BAG EPIDURAL SCH (15:00)
[2021-05-06] MEDS ORDERED: MAGNESIUM HYDROXIDE (MOM) ORAL LIQD UDC PO PRN (17:06)
[2021-05-06] MEDS ORDERED: LANOLIN/ZINC/DIMETHICONE (LANSINOH) 7 GM TP PRN ×2 (17:06)
[2021-05-06] MEDS ORDERED: ONDANSETRON 4 MG/2 ML INJ IV PRN (17:06)
[2021-05-06] MEDS ORDERED: WITCH HAZEL/ GLYCERIN PAD TP PRN (17:06)
[2021-05-06] MEDS ORDERED: BENZOCAINE/MENTHOL 20/0.5% TOP SPRAY 56 GM TP PRN (17:06)
[2021-05-06] MEDS ORDERED: diphenhydrAMINE 25 MG CAP PO PRN (17:06)
[2021-05-06] MEDS ORDERED: PROMETHAZINE 25 MG TAB PO PRN (17:06)
[2021-05-07] MEDS: IBUPROFEN 600 MG TAB PO SCH ×4 (00:37→18:11)
[2021-05-07 01:50] LABS: Hematocrit 33.3 % (30.3-42.9)
[2021-05-07] MEDS ORDERED: TETANUS,DIPH,PERTUSS(ACELL) VACCINE 0.5 ML SYRINGE IM ONE (06:24)
--- NOTE | 2021-05-07 09:55 | Progress Note ---
Assessment and Plan Pt sitting in bed holding infant without complaints. Reports bottle-feeding infant, and being able to perform ADL's without assistance or difficulty. Pt reports desires for discharge home today. POC reviewed with pt for infant testing this afternoon. Pt agrees to plan for discharge if cleared for discharge today. Discharge precautions reviewed. Pt reports desires for circumcision. All questions addressed. RN notified of POC. - Patient Problems (1) (normal spontaneous vaginal delivery) Current Visit: Yes Status: Acute Subjective - Subjective Date of service: 05/07/21 (pt desires discharge home) Principal diagnosis: IUP @term, Patient reports: appetite normal, voiding normally, pain well controlled, ambulating normally, no dizzy ambulation, no appetite poor, no pain poorly controlled, no nauseated : doing well, bottle feeding Objective - Vital Signs Latest vital signs: Vital Signs Temp Pulse Resp BP BP Pulse Ox 05/07/21 09:05 97.2 F L 79 18 124/84 100 05/07/21 05:25 98.2 F 75 18 103/64 99 05/07/21 00:43 97.9 F 72 18 129/88 100 05/07/21 00:37 20 05/06/21 21:30 99.0 F 81 20 118/75 100 05/06/21 16:30 98.0 F 76 16 124/78 100 05/06/21 15:27 71 87 05/06/21 15:25 65 92 05/06/21 15:22 71 96 05/06/21 15:19 71 88 05/06/21 15:17 64 100 05/06/21 15:12 62 89 05/06/21 15:08 60 93 05/06/21 15:07 60 100 05/06/21 15:02 52 L 100 05/06/21 14:57 52 L 100 05/06/21 14:52 57 L 100 05/06/21 14:47 60 100 05/06/21 14:42 54 L 100 05/06/21 14:37 61 100 05/06/21 14:36 68 92 05/06/21 14:32 75 93 05/06/21 14:29 70 92 05/06/21 14:26 58 L 100 05/06/21 14:21 54 L 100 05/06/21 14:16 61 127/80 99 05/06/21 14:15 61 22 120/80 100 05/06/21 14:11 72 98 05/06/21 14:06 62 99 05/06/21 14:01 60 119/66 99 05/06/21 14:00 60 22 119/66 99 05/06/21 13:56 66 98 05/06/21 13:51 64 99 05/06/21 13:48 63 92 05/06/21 13:46 62 120/70 99 05/06/21 13:45 62 22 106/63 100 05/06/21 13:44 60 106/63 05/06/21 13:41 62 100 05/06/21 13:36 64 100 05/06/21 13:31 66 101/54 99 05/06/21 13:30 65 22 101/54 99 05/06/21 13:26 75 100 05/06/21 13:21 71 98 05/06/21 13:20 71 106/57 05/06/21 13:16 78 100 05/06/21 13:15 98.2 F 70 20 106/57 98 05/06/21 13:11 80 99 05/06/21 13:06 81 99 05/06/21 13:01 82 153/81 100 05/06/21 12:56 88 100 05/06/21 12:51 80 99 05/06/21 12:46 77 111/65 99 05/06/21 12:41 78 97 05/06/21 12:36 71 100 05/06/21 12:32 70 102/55 05/06/21 12:31 70 99 05/06/21 12:28 68 108/62 05/06/21 12:26 78 99 05/06/21 12:21 65 99 05/06/21 12:16 70 98/58 99 05/06/21 12:11 70 99 05/06/21 12:06 64 99 05/06/21 12:01 71 99 05/06/21 12:00 73 106/58 05/06/21 11:58 69 115/63 05/06/21 11:56 73 102/56 99 05/06/21 11:54 73 105/56 05/06/21 11:52 82 105/59 05/06/21 11:51 74 100 05/06/21 11:50 71 106/57 07/16/21 11:49 71 119/59 05/06/21 11:46 89 99 05/06/21 11:44 75 122/72 05/06/21 11:42 79 115/70 05/06/21 11:41 82 100 05/06/21 11:40 78 119/77 05/06/21 11:38 84 121/73 05/06/21 11:36 89 100 05/06/21 11:34 85 117/69 05/06/21 11:31 103 H 88 05/06/21 11:29 72 94 05/06/21 11:26 95 H 100 05/06/21 11:21 78 95 05/06/21 11:19 105 H 94 05/06/21 11:16 94 H 97 05/06/21 11:13 75 94 05/06/21 11:11 96 H 96 05/06/21 11:06 79 93 05/06/21 11:02 26 H 05/06/21 11:01 79 89 05/06/21 11:00 87 91 05/06/21 10:56 73 98 05/06/21 10:52 105 H 93 05/06/21 10:51 88 95 05/06/21 10:46 79 100 05/06/21 10:41 98 H 100 05/06/21 10:36 78 91 05/06/21 10:35 80 92 05/06/21 10:31 69 96 05/06/21 10:26 88 91 05/06/21 10:24 81 94 05/06/21 10:21 83 99 05/06/21 10:16 89 98 05/06/21 10:13 101 H 92 05/06/21 10:11 93 H 97 05/06/21 10:08 89 94 05/06/21 10:06 91 H 100 05/06/21 10:03 20 05/06/21 10:01 102 H 90 05/06/21 09:56 103 H 100 05/06/21 09:51 86 98 Intake and Output 05/06/21 05/07/21 05/07/21 23:59 07:59 15:59 Intake Total 240 120 Balance 240 120 Intake: Intake, Free Water 240 120 Other: # Voids Void 2 1 - Exam Breasts: Present: normal Cardiovascular: Present: Regular rate Lungs: Present: Clear to auscultation, Normal air movement Abdomen: Present: normal appearance, soft Vulva: both: normal Uterus: Present: normal, firm, fundal height below umbilicus Extremities: Present: normal Comments: scant vaginal bleeding
[2021-05-07] MEDS ORDERED: PRENATAL VIT27-FE FUMARATE-FOLIC ACID VIT TAB PO SCH (10:00)
--- NOTE | 2021-05-07 16:14 | Post Anesthesia Evaluation ---
- Post Anesthesia Evaluation Patient Participated: Yes Airway Patent: Yes Stable Respiratory Function: Yes Nausea/Vomiting: No Temp > 96.8F: Yes Pain Manageable: Yes Adequeate Hydration: Yes Anesthesia Complications: No Block Receding Appropriately: Yes Patient on Ventilator: No
--- NOTE | 2021-05-07 16:59 | Discharge Summary ---
Providers - Providers Date of Admission: 05/04/21 20:32 Date of discharge: 05/07/21 Attending physician: MIGUEL A JEROME 05/06/21 17:06 Consult to Payroll Examiner [CONS] Routine Reason For Exam: assistance with , SNS Primary care physician: MIGUEL A JEROME Hospitalization Reason for admission: induction of labor (IUGR), IUP at term Delivery: Episiotomy: none Laceration: none Other procedures: none complications: none Discharge diagnosis: IUP at term delivered [place] baby: male Condition at discharge: Good Disposition: DC-01 TO HOME OR SELFCARE - Discharge Diagnoses (1) (normal spontaneous vaginal delivery) Status: Acute Plan - Discharge Medications Prescriptions: Lidocain2.5%/Prilocai2.5% [Emla] 5 gm TP ONCE #1 tube - Provider Discharge Summary Activity: routine, no sex for 6 weeks, no heavy lifting 4 weeks, no strenuous exercise Diet: routine Instructions: routine Additional instructions: [] Smoking cessation referral if applicable(refer to patient education folder for contact #) [] Refer to [facility]'s [facility] Booklet Call your doctor immediately for: * Fever > 100.5 * Heavy vaginal bleeding ( >1 pad per hour) * Severe persistent headache * Shortness of breath * Reddened, hot, painful area to leg or breast * Drainage or odor from incision. * Keep incision clean and dry at all times and follow doctor's instructions regarding bathing/showering Congratulations! Please call [phone] and schedule your visit in 4wks. Please also call and make an appointment for your infant's circumcision in 1 week. Please orange picking supervisor the prescription and bring it to your circumcision appointment. Do not give the medication! Thank you! - Follow up plan Follow up: MIGUEL A JEROME MD [Primary Care Provider] - 7 Days
[2021-05-07 20:15] VITALS: BP 122/64
== END 2021-05-07 20:05 | disposition home or self-care (01) | DRG 775 ==
LOC: LD 20:32 → OB 05-06 16:16
PROVIDERS: ADMIT Obstetrics & Gynecology; ATTEND Obstetrics & Gynecology
PROC: 3E033VJ Introduction of Other Hormone into Peripheral Vein, Percutaneous Approach (ICD-10-PCS; principal; 2021-05-06)
PROC: 10E0XZZ Delivery of Products of Conception, External Approach (ICD-10-PCS; 2021-05-06)
PROC: 3E0R3BZ Introduction of Anesthetic Agent into Spinal Canal, Percutaneous Approach (ICD-10-PCS; 2021-05-06)
PROC: 00HU33Z Insertion of Infusion Device into Spinal Canal, Percutaneous Approach (ICD-10-PCS; 2021-05-06)
PROC: 3E0234Z Introduction of Serum, Toxoid and Vaccine into Muscle, Percutaneous Approach (ICD-10-PCS; 2021-05-07)
DX: O36.5930 Maternal care for other known or suspected poor fetal growth, third trimester, not applicable or unspecified (principal); Z37.0 Single live birth; Z3A.37 37 weeks gestation of pregnancy; Z20.822 Contact with and (suspected) exposure to COVID-19; Z23 Encounter for immunization
CPT/HCPCS: 36415; 59200; 85014; 85018; 85027; 86592; 86850; 86900; 86901; 88307; 96360; G0378; J2300; J2590; J3105; J7120; U0003